=== PATIENT | female | born 1960 | race Caucasian/White ===

== ENCOUNTER → 2017-04-29 | Outpatient (CLI) | payer OTHER ==
--- NOTE | 2017-04-29 11:45 | MR ---
EXAMINATION TYPE: MR knee LT wo con DATE OF EXAM: 04/29/2017 COMPARISON: Plain film 04/16/2017 HISTORY: lt knee pain TECHNIQUE: Multiplanar, multisequence imaging of the left knee is performed without IV contrast. FINDINGS: MEDIAL MENISCUS: Abnormal increased signal present within the posterior horn extends the articular faria rface, meniscal fragment is suspected medially posterior horn. LATERAL MENISCUS: There is abnormal increased signal along the lateral meniscus which is somewhat di ffuse is felt likely to represent myxoid degeneration however some linear increased signal may extend to the articular surface within the posterior horn seen better on the sagittal image #10. The menisc us is thickened compatible with discoid meniscus. CRUCIATE LIGAMENTS: The anterior and posterior cruciate ligaments are intact and unremarkable. COLLATERAL LIGAMENTS: The medial collateral ligament and lateral collateral ligament complex are inta ct and unremarkable. EXTENSOR MECHANISM: Visualized quadriceps and patellar tendons are intact. EFFUSION: Large suprapatellar joint effusion is present. POPLITEAL CYST: Minute semimembranosus gastrocnemius cyst. TRICOMPARTMENT SPACES: Pseudoextrusion of the medial meniscus is noted. CARTILAGE: Grade 3 to grade IV chondromalacia in the medial compartment. Suspect grade 2 to grade III chondromalacia at the posterior patella BONE MARROW SIGNAL: Subchondral marrow edema or reactive signal change present especially in the medi al meniscus. Probable geode is present in the posterior tibia proximally. OTHER: Marginal spurring is present in the medial compartment. IMPRESSION: Tear of the posterior horn medial meniscus. Osteoarthritis. 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 Large joint effusion. Additional findings above.
== END | disposition home or self-care (01) ==
LOC: RADMRIMAIN 08:41
PROVIDERS: ATTEND Orthopaedic Surgery
DX: S83.242A Other tear of medial meniscus, current injury, left knee, initial encounter (principal); M17.12 Unilateral primary osteoarthritis, left knee

== ENCOUNTER → 2017-09-11 | Outpatient (CLI) | payer OTHER ==
--- NOTE | 2017-09-11 11:54 | MM ---
Reason for exam: clinical finding. Last mammogram was performed 1 year ago. History: Patient is postmenopausal and had first child at age 29. Family history of breast cancer in mother at age 70. U/S LT Cancelled Core of both breasts, September 21, 2013. Reductions of both breasts, 1999. 2 excisional biopsies of the left breast. Took hormonal contraceptives for 5 years beginning at age 18. Took estrogen for 10 years beginning at age 36. Physical Findings: Nurse Summary: 1.5cm nodule in the left breast at 7 o'clock (nurse dw). MG Diagnostic Mammo w CAD TOMMY Bilateral CC and MLO view(s) were taken. Prior study comparison: September 11, 2016, bilateral MG 3d screening mammo w/cad. September 05, 2015, bilateral MG 3d diag mammo w/cad TOMMY. There are scattered fibroglandular densities. Finding: There is a 7 mm circumscribed oval mass in the inner quadrant, middle position of the right breast. There is a chronic nodularity in the right breast. Increase in size since September 11, 2016 and September 05, 2015. ASSESSMENT: Incomplete: need additional imaging evaluation, BI-RAD 0 RECOMMENDATION: Ultrasound of both breasts. (left palpable, right increase in size lesion)
--- NOTE | 2017-09-11 11:56 | USB ---
Reason for exam: additional evaluation requested from abnormal screening. History: Patient is postmenopausal and had first child at age 29. Family history of breast cancer in mother at age 70. U/S LT Cancelled Core of both breasts, September 21, 2013. Reductions of both breasts, 1999. 2 excisional biopsies of the left breast. Took hormonal contraceptives for 5 years beginning at age 18. Took estrogen for 10 years beginning at age 36. US Breast Limited BILAT Right breast ultrasound demonstrates no cystic or solid lesion seen. Left breast ultrasound demonstrates no cystic or solid lesion seen. These results were verbally communicated with the patient and result sheet given to the patient on 09/11/17. ASSESSMENT: Negative, BI-RAD 1 RECOMMENDATION: Return to routine screening mammogram schedule for both breasts.
== END | disposition home or self-care (01) ==
LOC: RADMAMWWP 09:00
PROVIDERS: ATTEND Obstetrics & Gynecology
DX: N63.20 Unspecified lump in the left breast, unspecified quadrant (principal); R92.8 Other abnormal and inconclusive findings on diagnostic imaging of breast; Z80.3 Family history of malignant neoplasm of breast
CPT/HCPCS: 76642; G0204

== ENCOUNTER → 2017-12-16 | Outpatient (CLI) | payer BC ==
--- NOTE | 2017-12-16 15:57 | US ---
EXAMINATION TYPE: US venous doppler duplex LE RT DATE OF EXAM: 12/16/2017 3:46 PM COMPARISON: NONE CLINICAL HISTORY: RT R60.0 Edema of lower Ext. SIDE PERFORMED: Right TECHNIQUE: The lower extremity deep venous system is examined utilizing real time linear array sonog kurt with graded compression, doppler sonography and color-flow sonography. VESSELS IMAGED: External Iliac Vein (EIV) Common Femoral Vein Deep Femoral Vein Greater Saphenous Vein * Femoral Vein Popliteal Vein Small Saphenous Vein * Proximal Calf Veins (* superficial vessels) Right Leg: Negative for DVT Grayscale, color doppler, spectral doppler imaging performed of the deep veins of the lower extremiti es. IMPRESSION: There is normal flow, compressibility, vascular waveforms. No evident deep venous thro mbosis at or above the right knee.
== END | disposition home or self-care (01) ==
LOC: RADUSWWP 14:55
PROVIDERS: ATTEND Family Medicine
DX: R60.0 Localized edema (principal)

== ENCOUNTER 2018-09-03 07:33 | Day surgery (SDC) | payer BC ==
[2018-08-29 14:29] VITALS: BMI 30.1
[~2018-09-03 07:33] MED LIST: ALPRAZolam 0.25 MG TAB PO PRN; ALPRAZolam 0.5 MG TAB PO PRN; ASPIRIN 325 MG TAB PO STA; ATORVASTATIN 80 MG TAB PO STA; NITROGLYCERIN SL TABS 0.4 MG TAB SUBLINGUAL PRN; SODIUM CHLORIDE 0.9% 1,000 ML in EMPTY BAG 1 BAG IV ONE
[2018-09-03] MEDS ORDERED: LIDOCAINE 1% INJ 10MG/ML (20 ML MDV) ONE (08:02)
[2018-09-03] MEDS ORDERED: VERAPAMIL 2.5 MG/ML 2 ML AMP ONE (08:02)
[2018-09-03] MEDS ORDERED: fentaNYL (PF) 50 MCG/ML 2 ML AMP ONE (08:02)
[2018-09-03] MEDS ORDERED: HEPARIN SODIUM 1,000 UN/ML (10ML VL) ONE (08:03)
[2018-09-03] MEDS ORDERED: SODIUM CHLORIDE 0.9% 1,000 ML IV ONE (08:06)
[2018-09-03 08:07] VITALS: RESP 16; TEMP 97.7
[2018-09-03] MEDS ORDERED: fentaNYL (PF) 50 MCG/ML 2 ML AMP IV ONE (08:47)
[2018-09-03] MEDS ORDERED: LIDOCAINE 1% (PF) 10MG/ML VIAL SQ ONE (08:50)
[2018-09-03] MEDS: MIDAZOLAM 2 MG/2 ML VIAL IVP ONE ×2 (08:50→08:53)
[2018-09-03] MEDS ORDERED: VERAPAMIL SYRINGE (5 MG/10 ML) INTRAARTER ONE (08:51)
[2018-09-03] MEDS ORDERED: HEPARIN SODIUM 1,000 UN/ML (10ML VL) IV ONE (08:58)
[2018-09-03] MEDS ORDERED: IOPAMIDOL-370 125ML BTL INJ ONE (09:01)
[2018-09-03] MEDS ORDERED: SODIUM CHLORIDE 0.9% 1,000 ML IV SCH (09:15)
[2018-09-03] MEDS ORDERED: RX INFO: IV CONTRAST WAS GIVEN 1 EACH MISC MISCELLANE PRN (09:15)
[2018-09-03] MEDS ORDERED: ALPRAZolam 0.25 MG TAB PO PRN (09:16)
--- NOTE | 2018-09-03 10:17 | CC ---
CARDIAC CATHETERIZATION REPORT Ms. Stephens is a 58-year-old female with no prior documented coronary artery disease with a history of hypertension, hyperlipidemia, who has been complaining of chest discomfort. She underwent myocardial perfusion imaging that revealed a partial reversible anterior wall defect. In view of her persistent symptoms and the results of her testing, recommendation made regarding cardiac catheterization. The procedures, risks and complication were discussed with the patient who is in full understanding and agreement. PROCEDURE: Patient was brought to the laboratory inspector in a fasting semi-sedated state after receiving fentanyl and Benadryl and achieving moderate conscious sedated state. Using Xylocaine anesthesia and Seldinger technique, a 6-Kazakh sheath was introduced in the right radial artery. Selective right and left angiography performed using 5-Kazakh 3.5 bend right and left Amelia catheter, multiple views of the coronary artery including hemiaxial views were obtained. Following that, a 5-Kazakh tight pigtail catheters was introduced in the left ventricle and a 30 degree MUNIZ view of the left ventricle was obtained. Following that, the catheter and sheaths were removed, hemostasis was obtained with deployment of a TR band. There was no immediate complication. Patient was returned to her room in stable condition. Of note, the patient received 4500 units of intravenous heparin as well as intra-arterial verapamil. FINDINGS: LEFT MAIN: This is a short size vessel, bifurcating onto left circumflex, left anterior descending artery. Left main coronary artery has no evidence of high-grade stenosis LEFT ANTERIOR DESCENDING ARTERY: This is a large-sized vessel, reaching toward the apex, tapers down distally, giving rise to a large diagonal branch in the mid segment. The left anterior descending artery as well as branches have no evidence of obstructive coronary artery disease. LEFT CIRCUMFLEX: This is a large, nondominant vessel giving rise to two obtuse marginal branch. The left circumflex as well as branches have no evidence of obstructive coronary artery disease. RIGHT CORONARY ARTERY: This is a large dominant vessel, bifurcating into PDA and posterolateral segment branches. The right coronary artery and its branches have no evidence of obstructive coronary artery disease. LEFT VENTRICULOGRAM: Left ventriculogram is performed in 30 degree MUNIZ view and revealed normal left ventricular size and systolic function. There was arrhythmia induced mitral regurgitation. HEMODYNAMICS: There was no gradient across the aortic valve, the left ventricular end- diastolic pressure was 12 mmHg. CONCLUSION: 1. Normal coronary arteries. 2. Normal left ventricular size systolic function. RECOMMENDATION: In view of finding anatomy, I recommend continue medical therapy with aggressive risk modifications being initiated. Those findings and recommendations were discussed with the patient and her family and they are in full understanding and agreement. Duration of procedure is 17 minutes. MMPHI / FEDERICON: [id number] /
[2018-09-03 11:04] VITALS: PULSE 56
[2018-09-03 13:55] VITALS: BP 113/69
[2018-09-03] MEDS ORDERED: NON-FORMULARY DRUG (Rosuvastatin 10 MG) PO SCH (21:00)
[2018-09-04] MEDS ORDERED: NON-FORMULARY DRUG (Omeprazole 20 MG) PO SCH (07:30)
[2018-09-04] MEDS ORDERED: TRIAMTERENE-HCTZ 37.5-25MG 1 EACH CAP PO SCH (09:00)
[2018-09-04] MEDS ORDERED: ASPIRIN 81 MG PO SCH (09:00)
[2018-09-04] MEDS ORDERED: MULTIVIT WITH CALCIUM IRON MIN PO SCH (09:00)
[2018-09-04] MEDS ORDERED: CO Q10 PO SCH (09:00)
== END 2018-09-03 14:09 | disposition home or self-care (01) ==
LOC: CATHCVL 07:33
PROVIDERS: ATTEND Internal Medicine Interventional Cardiology
DX: R94.39 Abnormal result of other cardiovascular function study (principal); R07.89 Other chest pain; E78.2 Mixed hyperlipidemia; I10 Essential (primary) hypertension; F17.210 Nicotine dependence, cigarettes, uncomplicated; Z79.82 Long term (current) use of aspirin; Z79.899 Other long term (current) drug therapy; Z88.6 Allergy status to analgesic agent; Z88.1 Allergy status to other antibiotic agents; Z88.5 Allergy status to narcotic agent; Z88.2 Allergy status to sulfonamides; Z86.73 Personal history of transient ischemic attack (TIA), and cerebral infarction without residual deficits
CPT/HCPCS: 93458; C1894; C1769; J2250; J3010; J1644; J2001; Q9967

== ENCOUNTER → 2018-10-13 | Outpatient (CLI) | payer BC ==
--- NOTE | 2018-10-16 16:57 | MM ---
Reason for exam: screening (asymptomatic). Last mammogram was performed 1 year and 1 month ago. History: Patient is postmenopausal and had first child at age 29. Family history of breast cancer in mother at age 70. U/S LT Cancelled Core of both breasts, September 21, 2013. Reductions of both breasts, 1999. 2 excisional biopsies of the left breast. Took hormonal contraceptives for 5 years beginning at age 18. Took estrogen for 10 years beginning at age 36. MG Screening Mammo w CAD Bilateral CC and MLO view(s) were taken. Prior study comparison: September 11, 2017, bilateral MG diagnostic mammo w CAD TOMMY. September 11, 2016, bilateral MG 3d screening mammo w/cad. The breast tissue is heterogeneously dense. This may lower the sensitivity of mammography. There is benign-appearing left breast calcifications. Chronic nodularity in the right breast. No significant changes when compared with prior studies. ASSESSMENT: Benign, BI-RAD 2 RECOMMENDATION: Routine screening mammogram of both breasts in 1 year.
== END ==
LOC: RADMAMWWP 10:39
PROVIDERS: ATTEND Obstetrics & Gynecology
DX: Z12.31 Encounter for screening mammogram for malignant neoplasm of breast (principal)
CPT/HCPCS: 77067

== ENCOUNTER 2019-02-11 07:16 | Day surgery (SDC) | payer BC ==
[2019-02-09 13:02] VITALS: BMI 29.6
[~2019-02-11 07:16] MED LIST changes: -ALPRAZolam 0.25 MG TAB PO PRN; -ALPRAZolam 0.5 MG TAB PO PRN; -ASPIRIN 325 MG TAB PO STA; -ATORVASTATIN 80 MG TAB PO STA; +LACTATED RINGERS 1,000 ML IV SCH; -NITROGLYCERIN SL TABS 0.4 MG TAB SUBLINGUAL PRN; -SODIUM CHLORIDE 0.9% 1,000 ML in EMPTY BAG 1 BAG IV ONE
[2019-02-11 07:46] VITALS: TEMP 97.9
--- NOTE | 2019-02-11 07:53 | P.GSHP ---
History of Present Illness H&P Date: 02/11/19 CHIEF COMPLAINT: Colon screen HISTORY OF PRESENT ILLNESS: The patient is a 58-year-old female who presents for colon screen. Lower endoscopy was offered for further evaluation and management. PAST MEDICAL HISTORY: Please see list. PAST SURGICAL HISTORY: Please see list. MEDICATIONS: Please see list. ALLERGIES: Please see list. SOCIAL HISTORY: No illicit drug use FAMILY HISTORY: No reports of Crohn disease or ulcerative colitis. REVIEW OF ORGAN SYSTEMS: CONSTITUTIONAL: No reports of fevers or chills. PHYSICAL EXAM: VITAL SIGNS: Stable GENERAL: Well-developed pleasant in no acute distress. HEENT: No scleral icterus. Extraocular movements grossly intact. Moist buccal mucosa. NECK: Supple without lymphadenopathy. CHEST: Unlabored respirations. Equal bilateral excursions. CARDIOVASCULAR: Regular rate and rhythm. Distal 2+ pulses. ABDOMEN: Soft, nontender, nondistended. MUSCULOSKELETAL: No clubbing, cyanosis, or edema. ASSESSMENT: 1. Colon screen. PLAN: 1. Recommend proceeding with a lower endoscopy Past Medical History Past Medical History: Chest Pain / Angina, CVA/TIA, GERD/Reflux, Hyperlipidemia, Hypertension Additional Past Medical History / Comment(s): Hx. of TIA,varicose Veins. States 14 TIA's' shown on MRI discovered in 2001. Hx of arthritis, pain in ball's of feet, Diverticulositis w/ rupture and abscess-tx medically with drainge tube 2013 History of Any Multi-Drug Resistant Organisms: None Reported Past Surgical History: Cholecystectomy, Heart Catheterization, Hysterectomy, Orthopedic Surgery, Tonsillectomy Additional Past Surgical History / Comment(s): Hx. of nodules on vocal cords removed x2, colonoscopy, R breast Bx., D&C, ifeoma breast reduction, laser tubal repair, ifeoma knee arthroscopy. Past Anesthesia/Blood Transfusion Reactions: Postoperative Nausea & Vomiting (PONV) Smoking Status: Former smoker - Past Family History Mother Family Medical History: Cancer, Coronary Artery Disease (CAD), Myocardial Infarction ([place]) Additional Family Medical History / Comment(s): Breast cancer w/ brain mets, CABG x 4 Father Family Medical History: Cancer Additional Family Medical History / Comment(s): 2013 from prostate ca Medications and Allergies Home Medications Medication Instructions Recorded Confirmed Type Aspirin 81 mg PO QAM 01/19/14 02/09/19 History Triamterene/Hydrochlorothiazid 1 tab PO QAM 03/22/14 02/09/19 History [Triamterene-Hctz 37.5-25 mg Cp] ALPRAZolam [Xanax] 0.25 mg PO DAILY PRN 02/03/16 02/09/19 History Naproxen [Naprosyn] 500 mg PO DAILY 07/09/17 02/09/19 History Ubidecarenone [Co Q-10] 200 mg PO DAILY 07/09/17 02/09/19 History Omeprazole [PriLOSEC] 20 mg PO AC-BRKFST 08/29/18 02/09/19 History Rosuvastatin [Crestor] 10 mg PO HS 08/29/18 02/09/19 History Cholecalciferol (Vitamin D3) 1,000 unit PO DAILY 02/09/19 02/09/19 History [Vitamin D3] Glucosamine/MSM/Chrond/D3/Bosw 1 each PO DAILY 02/09/19 02/09/19 History [Vdcfavlqjcv-Fbutnn-KTR-D3 Cplt] Inulin/Chromium Picolinate [Fiber 2 each PO DAILY 02/09/19 02/09/19 History Gummies Chew] Metoprolol (Unknown) 25 mg PO BID 02/09/19 02/09/19 History Multivit-Min/Iron/Folic/Lutein 1 each PO DAILY 02/09/19 02/09/19 History [Centrum Silver Women Tablet] Polyethylene Glycol 3350 [Miralax] 17 gm PO DAILY 02/09/19 02/09/19 History Allergies Allergy/AdvReac Type Severity Reaction Status Date / Time hydrocodone bitartrate Allergy Rash/Hives Verified 02/11/19 07:39 [From Vicodin] sulfamethoxazole Allergy Rash/Hives Verified 02/11/19 07:39 [From Bactrim] trimethoprim [From Bactrim] Allergy Rash/Hives Verified 02/11/19 07:39 Sulfa (Sulfonamide AdvReac Rash/Hives Verified 02/11/19 07:39 Antibiotics) Surgical - Exam Vital Signs Temp Pulse Resp BP Pulse Ox 97.9 F 80 15 137/84 98 02/11/19 07:45 02/11/19 07:45 02/11/19 07:45 02/11/19 07:45 02/11/19 07:45
[2019-02-11] MEDS ORDERED: LIDOCAINE 1% INJ 10MG/ML (20 ML MDV) ONE (07:57)
[2019-02-11] MEDS ORDERED: PROPOFOL 10 MG/ML 20 ML VIAL IV ONE (07:57)
--- NOTE | 2019-02-11 08:25 | P.PCN ---
Date of Procedure: 02/11/19 Description of Procedure: PREOPERATIVE DIAGNOSIS: History of recent diverticulitis Colonoscopy screening. POSTOPERATIVE DIAGNOSIS: History of recent diverticulitis, sigmoid colon Colonoscopy screening. OPERATION: Colonoscopy to the ileocecal valve and appendiceal orifice. SURGEON: Holly Tavarez MD. ANESTHESIA: MAC. INDICATIONS: The patient is a 58-year-old female who presents for colonoscopy screening. Last colonoscopy was 5 years. Benefits and risks were described and informed consent was obtained. DESCRIPTION OF PROCEDURE: The patient had undergone Gatorade, MiraLAX and Dulcolax prep. She had been brought into the operating room and laid in the left lateral decubitus position. After adequate intravenous sedation, the rectum was examined with 2% lidocaine jelly. No external hemorrhoids were encountered. The rectal tone was within normal limits. No lesions were palpated in the rectal vault. An Olympus colonoscope was advanced until the ileocecal valve and appendiceal orifice were clearly viewed. The prep was excellent with clear visualization of the mucosal folds. The scope was removed with visualization of each mucosal fold. Scattered diverticulosis was encountered with [place] orifice between 20-30 cm was identified. The colon was highly redundant requiring abdominal wall pressure. No colonic polyps were found. No evidence of focal colitis was found. Retroflexion of the scope demonstrated no internal hemorrhoids. The colon was desufflated. The patient had tolerated the procedure well. Withdrawal time was over 6 minutes. FINDINGS: Aronchick preparation quality scale 1 (1-5) No internal hemorrhoids No external prolapsed hemorrhoids. No arteriovenous malformations. No adenomatous polyps. No focal colitis. RECOMMENDATIONS: Lower endoscopy in 10 years, 2028 Plan - Discharge Summary Discharge Rx Participant: No New Discharge Prescriptions: No Action Aspirin 81 mg PO QAM Triamterene/Hydrochlorothiazid [Triamterene-Hctz 37.5-25 mg Cp] 1 tab PO QAM ALPRAZolam [Xanax] 0.25 mg PO DAILY PRN PRN Reason: Anxiety Naproxen [Naprosyn] 500 mg PO DAILY Ubidecarenone [Co Q-10] 200 mg PO DAILY Omeprazole [PriLOSEC] 20 mg PO AC-BRKFST Rosuvastatin [Crestor] 10 mg PO HS Metoprolol Tartrate 25 mg PO BID Glucosamine/MSM/Chrond/D3/Bosw [Gmeuvbetrda-Mllahu-GIL-D3 Cplt] 1 each PO DAILY Multivit-Min/Iron/Folic/Lutein [Centrum Silver Women Tablet] 1 each PO DAILY Inulin/Chromium Picolinate [Fiber Gummies Chew] 2 each PO DAILY Polyethylene Glycol 3350 [Miralax] 17 gm PO DAILY Cholecalciferol (Vitamin D3) [Vitamin D3] 1,000 unit PO DAILY Discharge Medication List Aspirin 81 mg PO QAM 01/19/14 [History] Triamterene/Hydrochlorothiazid [Triamterene-Hctz 37.5-25 mg Cp] 1 tab PO QAM 03/22/14 [History] ALPRAZolam [Xanax] 0.25 mg PO DAILY PRN 02/03/16 [History] Naproxen [Naprosyn] 500 mg PO DAILY 07/09/17 [History] Ubidecarenone [Co Q-10] 200 mg PO DAILY 07/09/17 [History] Omeprazole [PriLOSEC] 20 mg PO AC-BRKFST 08/29/18 [History] Rosuvastatin [Crestor] 10 mg PO HS 08/29/18 [History] Cholecalciferol (Vitamin D3) [Vitamin D3] 1,000 unit PO DAILY 02/09/19 [History] Glucosamine/MSM/Chrond/D3/Bosw [Gsttvryinvm-Xxjfki-EKS-D3 Cplt] 1 each PO DAILY 02/09/19 [History] Inulin/Chromium Picolinate [Fiber Gummies Chew] 2 each PO DAILY 02/09/19 [History] Metoprolol Tartrate 25 mg PO BID 02/09/19 [History] Multivit-Min/Iron/Folic/Lutein [Centrum Silver Women Tablet] 1 each PO DAILY 02/09/19 [History] Polyethylene Glycol 3350 [Miralax] 17 gm PO DAILY 02/09/19 [History] Follow up Appointment(s)/Referral(s): Holly Tavarez MD [STAFF PHYSICIAN] - 02/24/19 Patient Instructions/Handouts: Diverticulosis Diet (GEN), Diverticulosis (DC) Activity/Diet/Wound Care/Special Instructions: Repeat colonoscopy in 10 years, 2028 Discharge Disposition: HOME SELF-CARE
[2019-02-11 08:57] VITALS: BP 133/80; PULSE 52; RESP 16
== END 2019-02-11 09:11 | disposition home or self-care (01) ==
LOC: ORWHC2ENDO 07:16
PROVIDERS: ATTEND Surgery Plastic and Reconstructive Surgery
DX: K57.30 Diverticulosis of large intestine without perforation or abscess without bleeding (principal); Q43.9 Congenital malformation of intestine, unspecified; I10 Essential (primary) hypertension; K44.9 Diaphragmatic hernia without obstruction or gangrene; E78.5 Hyperlipidemia, unspecified; F41.9 Anxiety disorder, unspecified; K21.9 Gastro-esophageal reflux disease without esophagitis; Z88.5 Allergy status to narcotic agent; Z88.2 Allergy status to sulfonamides; Z79.1 Long term (current) use of non-steroidal anti-inflammatories (NSAID); Z79.82 Long term (current) use of aspirin; Z79.899 Other long term (current) drug therapy; Z90.49 Acquired absence of other specified parts of digestive tract; Z90.710 Acquired absence of both cervix and uterus; Z87.891 Personal history of nicotine dependence; Z86.73 Personal history of transient ischemic attack (TIA), and cerebral infarction without residual deficits; Z82.49 Family history of ischemic heart disease and other diseases of the circulatory system; Z80.3 Family history of malignant neoplasm of breast; Z80.42 Family history of malignant neoplasm of prostate; Z80.8 Family history of malignant neoplasm of other organs or systems
CPT/HCPCS: 45378; J2001; J2704

== ENCOUNTER 2019-04-22 09:41 | Day surgery (SDC) | payer BC ==
[2019-04-17 10:25] VITALS: BMI 28.3
--- NOTE | 2019-04-22 07:33 | P.GSHP ---
History of Present Illness H&P Date: 04/22/19 CHIEF COMPLAINT: GERD HISTORY OF PRESENT ILLNESS: The patient is a 58-year-old male who presents reports gastroesophageal reflux disease. Upper endoscopy was offered for further evaluation and management. PAST MEDICAL HISTORY: Please see list. PAST SURGICAL HISTORY: Please see list. MEDICATIONS: Please see list. ALLERGIES: Please see list. SOCIAL HISTORY: No illicit drug use FAMILY HISTORY: No reports of Crohn disease or ulcerative colitis. REVIEW OF ORGAN SYSTEMS: CONSTITUTIONAL: No reports of fevers or chills. GI: Denies any blood in stools or constipation. PHYSICAL EXAM: VITAL SIGNS: Stable GENERAL: Well-developed and pleasant in no acute distress. HEENT: No scleral icterus. Extraocular movements grossly intact. Moist buccal mucosa. NECK: Supple without lymphadenopathy. CHEST: Unlabored respirations. Equal bilateral excursions. CARDIOVASCULAR: Regular rate and rhythm. Distal 2+ pulses. ABDOMEN: Soft, nondistended. MUSCULOSKELETAL: No clubbing, cyanosis, or edema. ASSESSMENT: 1. Gastroesophageal reflux disease PLAN: 1. Recommend proceeding with an upper endoscopy Past Medical History Past Medical History: CVA/TIA, GERD/Reflux, Hyperlipidemia, Hypertension Additional Past Medical History / Comment(s): varicose Veins,14 TIA's' shown on MRI discovered in 2001. diverticulosiis w/ rupture and abscess-tx medically with drainge tube 2013, hiatal hernia, arthritis History of Any Multi-Drug Resistant Organisms: None Reported Past Surgical History: Breast Surgery, Cholecystectomy, Heart Catheterization, Hysterectomy, Orthopedic Surgery, Tonsillectomy Additional Past Surgical History / Comment(s): Hx. of nodules on vocal cords removed x2, colonoscopy, R breast Bx., D&C, ifeoma breast reduction, laser tubal repair, ifeoma knee arthroscopy. Past Anesthesia/Blood Transfusion Reactions: Postoperative Nausea & Vomiting (PONV) Additional Past Anesthesia/Blood Transfusion Reaction / Comment(s): diff waking up a long time ago Smoking Status: Former smoker - Past Family History Mother Family Medical History: Cancer Additional Family Medical History / Comment(s): Breast cancer Father Family Medical History: Cancer Additional Family Medical History / Comment(s): prostate ca Medications and Allergies Home Medications Medication Instructions Recorded Confirmed Type Aspirin 81 mg PO QAM 01/19/14 04/17/19 History Triamterene/Hydrochlorothiazid 1 tab PO QAM 03/22/14 04/17/19 History [Triamterene-Hctz 37.5-25 mg Cp] ALPRAZolam [Xanax] 0.25 mg PO DAILY PRN 02/03/16 04/17/19 History Naproxen [Naprosyn] 500 mg PO DAILY 07/09/17 04/17/19 History Ubidecarenone [Co Q-10] 200 mg PO DAILY 07/09/17 04/17/19 History Omeprazole [PriLOSEC] 20 mg PO AC-BRKFST 08/29/18 04/17/19 History Rosuvastatin [Crestor] 10 mg PO HS 08/29/18 04/17/19 History Cholecalciferol (Vitamin D3) 1,000 unit PO DAILY 02/09/19 04/17/19 History [Vitamin D3] Glucosamine/MSM/Chrond/D3/Bosw 1 each PO DAILY 02/09/19 04/17/19 History [Fujswirnsqr-Egeruf-JEQ-D3 Cplt] Inulin/Chromium Picolinate [Fiber 3 each PO DAILY 02/09/19 04/17/19 History Gummies Chew] Metoprolol Tartrate 25 mg PO BID 02/09/19 04/17/19 History Multivit-Min/Iron/Folic/Lutein 1 each PO DAILY 02/09/19 04/17/19 History [Centrum Silver Women Tablet] Magnesium(Dose Unknown) 1 cap PO DAILY 04/17/19 04/17/19 History Allergies Allergy/AdvReac Type Severity Reaction Status Date / Time hydrocodone bitartrate Allergy Rash/Hives Verified 04/17/19 10:13 [From Vicodin] sulfamethoxazole Allergy Rash/Hives Verified 04/17/19 10:13 [From Bactrim] trimethoprim [From Bactrim] Allergy Rash/Hives Verified 04/17/19 10:13 Sulfa (Sulfonamide AdvReac Rash/Hives Verified 04/17/19 10:13 Antibiotics)
[~2019-04-22 09:41] MED LIST changes: +LIDOCAINE 1% 20 ML VIAL (10MG/ML) FOR IV START INTRADERMA PRN
[2019-04-22 10:13] VITALS: TEMP 98.1
[2019-04-22] MEDS ORDERED: PROPOFOL 10 MG/ML 20 ML VIAL IV ONE (10:48)
[2019-04-22] MEDS ORDERED: LIDOCAINE 1% INJ 10MG/ML (20 ML MDV) ONE (10:48)
--- NOTE | 2019-04-22 11:05 | P.PCN ---
Date of Procedure: 04/22/19 Description of Procedure: PREOPERATIVE DIAGNOSIS: Gastroesophageal reflux disease. POSTOPERATIVE DIAGNOSIS: Gastritis. Gastroesophageal reflux disease. Diaphragmatic hiatal hernia with severe erosive esophagitis OPERATION: Esophagogastroduodenoscopy with biopsies along antrum and distal esophagus SURGEON: Holly Tavarez MD ANESTHESIA: MAC. INDICATIONS: The patient is a 58-year-old female who presents with a history of reflux disease. Benefits and risks of the procedure were described. Informed consent was obtained. DESCRIPTION: The patient was brought into the endoscopy suite and laid in the left lateral decubitus position. An Olympus gastroscope was passed along the posterior oropharynx down to the distal esophagus where the squamocolumnar junction was encountered at 38 cm from the incisors. The stomach was entered and no bile reflux was found. Additional findings are listed below. Biopsies with cold forceps were obtained of the antrum. The first through third portion of the duodenum was examined and unremarkable. Retroflexion of the scope confirmed Hill grade 4 lower esophageal valve. The squamocolumnar junction demonstrated LA grade C erosive esophagitis. The stomach was desufflated. The patient tolerated the procedure well. FINDINGS: Squamocolumnar junction 38 cm from the incisors. Diaphragmatic hiatus at 40 cm. Hiatal hernia, 2 cm Hill grade 4 lower esophageal valve. LA grade C erosive esophagitis with biopsies obtained along distal esophagus No active duodenitis. Chronic gastritis RECOMMENDATIONS: Upper endoscopy as needed. Increase omeprazole from 20 mg to 40 mg daily for inadequate therapy Plan - Discharge Summary Discharge Rx Participant: No New Discharge Prescriptions: New Omeprazole 40 mg PO DAILY #90 capsule.dr Discontinued Omeprazole [PriLOSEC] 20 mg PO AC-BRKFST No Action Aspirin 81 mg PO QAM Triamterene/Hydrochlorothiazid [Triamterene-Hctz 37.5-25 mg Cp] 1 tab PO QAM ALPRAZolam [Xanax] 0.25 mg PO DAILY PRN PRN Reason: Anxiety Naproxen [Naprosyn] 500 mg PO DAILY Ubidecarenone [Co Q-10] 200 mg PO DAILY Rosuvastatin [Crestor] 10 mg PO HS Metoprolol Tartrate 25 mg PO BID Glucosamine/MSM/Chrond/D3/Bosw [Jayccztpkwe-Kogfza-AZY-D3 Cplt] 1 each PO DAILY Multivit-Min/Iron/Folic/Lutein [Centrum Silver Women Tablet] 1 each PO DAILY Inulin/Chromium Picolinate [Fiber Gummies Chew] 3 each PO DAILY Cholecalciferol (Vitamin D3) [Vitamin D3] 1,000 unit PO DAILY Magnesium(Dose Unknown) 1 cap PO DAILY Discharge Medication List Aspirin 81 mg PO QAM 01/19/14 [History] Triamterene/Hydrochlorothiazid [Triamterene-Hctz 37.5-25 mg Cp] 1 tab PO QAM 03/22/14 [History] ALPRAZolam [Xanax] 0.25 mg PO DAILY PRN 02/03/16 [History] Naproxen [Naprosyn] 500 mg PO DAILY 07/09/17 [History] Ubidecarenone [Co Q-10] 200 mg PO DAILY 07/09/17 [History] Rosuvastatin [Crestor] 10 mg PO HS 08/29/18 [History] Cholecalciferol (Vitamin D3) [Vitamin D3] 1,000 unit PO DAILY 02/09/19 [History] Glucosamine/MSM/Chrond/D3/Bosw [Kdzldlfbrdk-Itivik-RZK-D3 Cplt] 1 each PO DAILY 02/09/19 [History] Inulin/Chromium Picolinate [Fiber Gummies Chew] 3 each PO DAILY 02/09/19 [History] Metoprolol Tartrate 25 mg PO BID 02/09/19 [History] Multivit-Min/Iron/Folic/Lutein [Centrum Silver Women Tablet] 1 each PO DAILY 02/09/19 [History] Magnesium(Dose Unknown) 1 cap PO DAILY 04/17/19 [History] Omeprazole 40 mg PO DAILY #90 capsule. 04/22/19 [Rx] Follow up Appointment(s)/Referral(s): Holly Tavarez MD [STAFF PHYSICIAN] - 05/05/19 Patient Instructions/Handouts: Hiatal Hernia (DC), Gastroesophageal Reflux Disease (DC) Discharge Disposition: HOME SELF-CARE
[2019-04-22 11:23] VITALS: BP 139/82; PULSE 53; RESP 16
== END 2019-04-22 11:54 | disposition home or self-care (01) ==
LOC: ORWHC2ENDO 09:41
PROVIDERS: ATTEND Surgery Plastic and Reconstructive Surgery
DX: K21.0 Gastro-esophageal reflux disease with esophagitis (principal); K29.50 Unspecified chronic gastritis without bleeding; K44.9 Diaphragmatic hernia without obstruction or gangrene; I10 Essential (primary) hypertension; E78.5 Hyperlipidemia, unspecified; F41.9 Anxiety disorder, unspecified; M19.90 Unspecified osteoarthritis, unspecified site; I83.90 Asymptomatic varicose veins of unspecified lower extremity; Z86.73 Personal history of transient ischemic attack (TIA), and cerebral infarction without residual deficits; Z87.891 Personal history of nicotine dependence; Z79.1 Long term (current) use of non-steroidal anti-inflammatories (NSAID); Z79.899 Other long term (current) drug therapy; Z88.5 Allergy status to narcotic agent; Z88.2 Allergy status to sulfonamides; Z80.3 Family history of malignant neoplasm of breast; Z80.42 Family history of malignant neoplasm of prostate; Z90.49 Acquired absence of other specified parts of digestive tract; Z90.710 Acquired absence of both cervix and uterus
CPT/HCPCS: 43239; 88305; J2001; J2704

== ENCOUNTER → 2019-11-12 | Outpatient (CLI) | payer BC ==
--- NOTE | 2019-11-12 16:20 | BD ---
EXAMINATION TYPE: Axial Bone Density DATE OF EXAM: 11/12/2019 COMPARISON: NONE CLINICAL HISTORY: 59-year-old female postmenopausal screening Height: 66.5 Weight: 200.0 FRAX RISK QUESTIONS: Alcohol (3 or more units per day): no Family History (Parent hip fracture): no Glucocorticoids (More than 3mos): no (Ex: prednisone, prednisolone, methylprednisolone, dexamethasone, and hydrocortisone). History of Fracture in Adulthood: no Secondary Osteoporosis: 1. Type 1 Diabetes: no 2. Hyperthyroidism: no 3. Menopause before 45: 4. Malnutrition: no 5. Chronic liver disease: no Rheumatoid Arthritis: no Current Tobacco Use: no RISK FACTORS HISTORY OF: Family History of Osteoporosis: no Active: yes Diet low in dairy products/other sources of calcium: yes Postmenopausal woman: hysterectomy 1998 Lost more than 2 inches in height since high school: no MEDICATIONS: naproxen, metoprolol, atorvastatin, Prilosec, low dose aspirin, probiotic, vitamins Additional History: EXAM MEASUREMENTS: Bone mineral densitometry was performed using the [employer] System. Bone mineral density as measured about the Lumbar spine is: ----- L1-L4(G/cm2): 1.158 T Score Values are as follows: ----- L2: -1.0 ----- L3: 0.2 ----- L4: 0.7 ----- L1-L4: -0.2 Bone mineral density has: increased 1.2 % since study of: 09.02.2013 Bone mineral density about the R hip (g/cm2): 0.868 Bone mineral density about the L hip (g/cm2): .0786 T Score values are as follows: -----R Neck: -1.2 -----L Neck: -1.8 -----R Total: -0.8 -----L Total: -1.2 Bone mineral density has: decreased -12.8 % since study of: 09.02.2013 IMPRESSION: Osteopenia (T Score between -2.5 and -1). There is slightly increased risk of fracture and the patient may be considered for treatment. Re-Screen 2-5 years. NOTE: T-SCORE=SD OF THE YOUNG ADULT MEAN.
== END | disposition home or self-care (01) ==
LOC: RADBDWWP 08:05
PROVIDERS: ATTEND Obstetrics & Gynecology
DX: M85.89 Other specified disorders of bone density and structure, multiple sites (principal); N95.1 Menopausal and female climacteric states
CPT/HCPCS: 77080

== ENCOUNTER → 2021-02-23 | Outpatient (CLI) | payer BC ==
--- NOTE | 2021-02-27 07:55 | MM ---
Reason for exam: screening (asymptomatic). Last mammogram was performed 1 year and 3 months ago. History: Patient is postmenopausal and had first child at age 29. Family history of breast cancer in mother at age 70. U/S LT Cancelled Core of both breasts, September 21, 2013. Reductions of both breasts, 1999. 2 excisional biopsies of the left breast. Took hormonal contraceptives for 5 years beginning at age 18. Took estrogen for 10 years beginning at age 36. Physical Findings: A clinical breast exam by your physician is recommended on an annual basis and results should be correlated with mammographic findings. MG Screening Mammo w CAD Bilateral CC and MLO view(s) were taken. Prior study comparison: November 11, 2019, bilateral MG 3d screening mammo w/cad. October 13, 2018, bilateral MG screening mammo w CAD. There are scattered fibroglandular densities. ASSESSMENT: Benign, BI-RAD 2 RECOMMENDATION: Routine screening mammogram of both breasts in 1 year.
== END | disposition home or self-care (01) ==
LOC: RADMAMWWP 13:57
PROVIDERS: ATTEND Obstetrics & Gynecology
DX: Z12.31 Encounter for screening mammogram for malignant neoplasm of breast (principal); Z78.0 Asymptomatic menopausal state; Z80.3 Family history of malignant neoplasm of breast
CPT/HCPCS: 77067

== ENCOUNTER → 2021-11-01 | Outpatient (CLI) | payer BC ==
--- NOTE | 2021-11-02 05:30 | CT ---
EXAMINATION TYPE: CT abdomen pelvis w con DATE OF EXAM: 11/01/2021 HISTORY: diverticulitis CT DLP: 709mGycm Automated Exposure Control for Dose Reduction was Utilized. CONTRAST: CT scan of the abdomen and pelvis is performed with IV Contrast, patient injected with 100 mL of Isov ue 300. COMPARISON: Prior CT January 14, 2014 FINDINGS: LUNG BASES: No significant abnormality is appreciated. LIVER/GB: Cholecystectomy clips are redemonstrated. PANCREAS: No significant abnormality is seen. SPLEEN: No significant abnormality is seen. ADRENALS: No significant abnormality is seen. KIDNEYS: Symmetric cortical medullary uptake and excretion without hydronephrosis seen bilaterally. M ildly distended bladder in the anterior pelvis. BOWEL: Oral contrast does not reach level of terminal ileum making evaluation of distal bowel subopti mal. No suspicious small or large bowel dilatation is seen. Redemonstration of sigmoid colonic divert iculosis without convincing evidence of diverticulitis. Normal-appearing appendix from cecum. UTERUS/ADNEXA: Uterus is not visualized similar to prior presumed surgically absent. Gas prominent st ructure between the rectosigmoid colon and bladder LYMPH NODES: No greater than 1cm abdominal or pelvic lymph nodes are appreciated. OSSEOUS STRUCTURES: Moderate to severe disc space narrowing with endplate sclerosis and vacuum disc p henomenon L3-L4 level along with right L4-L5 level moderate disc space narrowing with vacuum disc phe nomenon L5-S1 level. Moderate axial joint space loss in both hips. OTHER: No significant additional abnormality is seen. IMPRESSION: 1. Sigmoid colonic diverticulosis without CT evidence for acute diverticulitis. 2. Gas prominent structure in the lower pelvis has local mass effect, this could reflect redundant re ctosigmoid colon, cannot exclude origin from the remnant vaginal cuff causing mass effect on the blad roderick and distal colon. Correlate clinically. This could be better evaluated with pelvic CT with rectal contrast if necessary.
== END | disposition home or self-care (01) ==
LOC: RADCTMAIN 16:47
PROVIDERS: ATTEND Surgery Plastic and Reconstructive Surgery
DX: K57.30 Diverticulosis of large intestine without perforation or abscess without bleeding (principal)
CPT/HCPCS: 74177; Q9967

== ENCOUNTER → 2021-12-06 | Outpatient (CLI) | payer BC | END | disposition home or self-care (01) | LOC: LABWHC1 11:37 | PROVIDERS: ATTEND Surgery Plastic and Reconstructive Surgery | DX: I11.9 Hypertensive heart disease without heart failure (principal) | CPT/HCPCS: 36415; 93005 ==

== ENCOUNTER → 2022-01-18 | Outpatient (CLI) | payer BC ==
[2022-01-18 22:29] LABS: HCT 38.8 % (37.2-46.3); HGB 12.4 g/dL (12.0-15.0); MCH 29.5 pg (27.0-32.0); MCV 92.2 fL (80.0-97.0); Mean Platelet Volume 8.5 fL (9.5-12.2); NRBC Per 100 WBC 0 /100 WBCS (0.0-0.0); Platelet Count 246 X 10*3/uL (140-440); RBC 4.21 X 10*6/uL (4.10-5.20); RDW 12.2 % (11.5-14.5); WBC 6.05 X 10*3/uL (4.50-10.00)
[2022-01-18 22:47] LABS: African American GFR (CKD) 90.9 (60.0-200.0); Albumin 4.7 g/dL (3.8-4.9); Albumin/Globulin Ratio 2.24 (1.60-3.17); Anion Gap 10.5 mmol/L (10.00-18.00); BUN/Creat Ratio 16.38 Ratio (12.00-20.00); Blood Urea Nitrogen 13.1 mg/dL (9.0-27.0); Calcium 10.6 mg/dL (8.7-10.3); Carbon Dioxide 29.5 mmol/L (20.0-27.5); Globulin 2.1 g/dL (1.6-3.3); Non-African American GFR(CKD) 78.5 (60.0-200.0); Potassium 4.2 mmol/L (3.5-5.5); Total Bilirubin 0.5 mg/dL (0.30-1.20); Total Protein 6.8 g/dL (6.2-8.2)
== END | disposition home or self-care (01) ==
LOC: LABPAT 13:31
PROVIDERS: ATTEND Surgery Plastic and Reconstructive Surgery
DX: Z01.818 Encounter for other preprocedural examination (principal)
CPT/HCPCS: 36415; 80053; 85027

== ENCOUNTER → 2022-04-17 | Outpatient (CLI) | payer BC ==
--- NOTE | 2022-04-17 12:00 | BD ---
EXAMINATION TYPE: Axial Bone Density DATE OF EXAM: 04/17/2022 COMPARISON: 09/02/2013 11/12/2019 STUDY NOT AVAILABLE FOR COMPARISON CLINICAL HISTORY: 61 years year old Female. ICD-10 CODE: N95.1 POST MENOPUASAL SYMPTOMS Height: 65.5 IN Weight: 174 LBS FRAX RISK QUESTIONS: Secondary Osteoporosis: 3. Menopause before 45: TOTAL HYST AGE 34 RISK FACTORS HISTORY OF: Family History of Osteoporosis: YES AUNT Active: YES Postmenopausal woman: TOTAL HYST AGE 34 Take estrogen and/or progesterone medications: YES How long: YEARS Lost more than 2 inches in height since high school: YES 2" MEDICATIONS: Additional Medications: CALCIUM, VIT D, OMEPRAZOLE, METOPROLOL, STATIN, NAPROXEN, TRIAMERTINE, MULTI VIT, COQ10, GLUCOSAMINE, MAGNESIUM, VIT B12, POTASSIUM, BABY ASPIRIN, EXAM MEASUREMENTS: Bone mineral densitometry was performed using the [employer] System. Bone mineral density as measured about the Lumbar spine is: ----- L1-L4(G/cm2): 1.150 T Score Values are as follows: ----- L1: -1.1 ----- L2: -1.6 ----- L3: 0.4 ----- L4: 0.9 ----- L1-L4: -0.3 Bone mineral density has: Increased 0.4% since study of: 09/02/2013 Bone mineral density about the R hip (g/cm2): 0.835 Bone mineral density about the L hip (g/cm2): 0.812 T Score values are as follows: -----R Neck: -1.5 -----L Neck: -1.6 -----R Total: -1.3 -----L Total: -1.4 Bone mineral density has: Decreased -16.9% since study of: 09/02/2013 FRAX%s: The graph provided illustrates a 9.0 chance for a major osteoporotic fx and a 1.0 chance for the hips probability for fx in 10 years time. IMPRESSION: Osteopenia (T Score between -2.5 and -1). There is slightly increased risk of fracture and the patient may be considered for treatment. Re-Screen 2-5 years. NOTE: T-SCORE=SD OF THE YOUNG ADULT MEAN.
--- NOTE | 2022-04-18 19:56 | MM ---
Reason for Exam: Screening (asymptomatic). Last mammogram was performed 1 year(s) and 1 month(s) ago. Patient History: Menarche at age 11. First Full-Term at age 29. Late child-bearing (after 30). Left ovary removed at age 36. Right ovary removed at age 36. Hysterectomy at age 36. Postmenopausal. Estrogen, starting at age 36 for 10 years. Hormonal Contraceptives, starting at age 18 for 5 years. 1999, Bilateral Reduction. Excisional Biopsy on the Left side. Excisional Biopsy on the Left side. 09/21/2013, Bilateral U/S LT Cancelled Core. Mother had breast cancer, age 70. Risk Values: Kelsey 5 year model risk: 4.7%. NCI Lifetime model risk: 19.0%. Prior Study Comparison: 10/13/2018 Bilateral Screening Mammogram, [facility]. 11/11/2019 Bilateral Screening Mammogram, [facility]. 02/23/2021 Bilateral Screening Mammogram, [facility]. Tissue Density: The breast tissue is heterogeneously dense. This may lower the sensitivity of mammography. Findings: Analyzed By CAD. No suspicious groups of microcalcifications, spiculated or lobular masses, architectural distortion or other secondary signs of malignancy are mammographically apparent. Overall Assessment: Benign, BI-RAD 2 Management: Screening Mammogram of both breasts in 1 year. A negative mammogram report should not preclude additional follow up of suspicious palpable abnormalities. Patient should continue monthly self breast exam. A clinical breast exam by your physician is recommended on an annual basis and results should be correlated with mammographic findings. Electronically signed and approved by: Arsen Yanez D.O. Radiologis
== END | disposition home or self-care (01) ==
LOC: RADMAMWWP 11:07
PROVIDERS: ATTEND Obstetrics & Gynecology
DX: Z12.31 Encounter for screening mammogram for malignant neoplasm of breast (principal); M85.89 Other specified disorders of bone density and structure, multiple sites; Z78.0 Asymptomatic menopausal state; Z80.3 Family history of malignant neoplasm of breast
CPT/HCPCS: 77067; 77080

== ENCOUNTER → 2022-12-11 | Outpatient (CLI) | payer OTHER ==
[2022-12-11 10:48] LABS: HGB 13.6 g/dL (12.0-15.0); MCH 30.7 pg (27.0-32.0); MCHC 33.2 g/dL (32.0-37.0); MCV 92.6 fL (80.0-97.0); Mean Platelet Volume 8.8 fL (9.5-12.2); NRBC Per 100 WBC 0 /100 WBCS (0.0-0.0); Platelet Count 289 X 10*3/uL (140-440); RBC 4.43 X 10*6/uL (4.10-5.20); RDW 12.3 % (11.5-14.5); WBC 4.71 X 10*3/uL (4.50-10.00)
[2022-12-11 11:58] LABS: ALT 18 U/L (8-44); AST 18 U/L (13-35); African American GFR (CKD) 77.2 (60.0-200.0); BUN/Creat Ratio 17.78 Ratio (12.00-20.00); Blood Urea Nitrogen 16.2 mg/dL (9.0-27.0); Calcium 10.5 mg/dL (8.7-10.3); Carbon Dioxide 28.3 mmol/L (20.0-27.5); Chloride 101 mmol/L (96-109); Chol/HDL Ratio 2.85 Ratio; Glucose 123 mg/dL (70-110); LDL Cholesterol,Calculated 117.2 mg/dL (0.0-131.0); Non-African American GFR(CKD) 66.6 (60.0-200.0); Potassium 4.2 mmol/L (3.5-5.5); Sodium 141 mmol/L (135-145)
== END | disposition home or self-care (01) ==
LOC: LABWHC1 07:24
PROVIDERS: ATTEND Family Medicine
DX: I10 Essential (primary) hypertension (principal); E78.5 Hyperlipidemia, unspecified; R73.01 Impaired fasting glucose
CPT/HCPCS: 36415; 80048; 80061; 82306; 83036; 84450; 84460; 85027

== ENCOUNTER 2022-12-12 06:47 | Day surgery (SDC) | payer BC, OTHER ==
[2022-12-10 13:32] VITALS: BMI 29.0
[~2022-12-12 06:47] MED LIST changes: +LIDOCAINE 1% (10MG/ML) FOR IV START INTRADERMA PRN; -LIDOCAINE 1% 20 ML VIAL (10MG/ML) FOR IV START INTRADERMA PRN
[2022-12-12 07:26] VITALS: TEMP 97.7
[2022-12-12] MEDS ORDERED: PROPOFOL 10 MG/ML 20 ML VIAL IV ONE (07:39)
[2022-12-12] MEDS ORDERED: LIDOCAINE 2% INJ 20 MG/ML (2 ML VIAL) ONE (07:39)
--- NOTE | 2022-12-12 07:46 | P.GSHP ---
History of Present Illness H&P Date: 12/12/22 CHIEF COMPLAINT: GERD HISTORY OF PRESENT ILLNESS: The patient is a 62-year-old female who presents reports gastroesophageal reflux disease. Upper endoscopy was offered for further evaluation and management. PAST MEDICAL HISTORY: Please see list. PAST SURGICAL HISTORY: Please see list. MEDICATIONS: Please see list. ALLERGIES: Please see list. SOCIAL HISTORY: No illicit drug use FAMILY HISTORY: No reports of Crohn disease or ulcerative colitis. REVIEW OF ORGAN SYSTEMS: CONSTITUTIONAL: No reports of fevers or chills. GI: Denies any blood in stools or constipation. PHYSICAL EXAM: VITAL SIGNS: Stable GENERAL: Well-developed and pleasant in no acute distress. HEENT: No scleral icterus. Extraocular movements grossly intact. Moist buccal mucosa. NECK: Supple without lymphadenopathy. CHEST: Unlabored respirations. Equal bilateral excursions. CARDIOVASCULAR: Regular rate and rhythm. Distal 2+ pulses. ABDOMEN: Soft, nondistended. MUSCULOSKELETAL: No clubbing, cyanosis, or edema. ASSESSMENT: 1. Gastroesophageal reflux disease PLAN: 1. Recommend proceeding with an upper endoscopy Past Medical History Past Medical History: Chest Pain / Angina, CVA/TIA, GERD/Reflux, Hyperlipidemia, Hypertension, Osteoarthritis (OA) Additional Past Medical History / Comment(s): Diverticulosis. Varicose Veins. 11 TIA's shown on MRI discovered in 2001. Hx Diverticulitis w/ rupture, HIATAL HERNIA History of Any Multi-Drug Resistant Organisms: None Reported Past Surgical History: Bowel Resection, Breast Surgery, Cholecystectomy, Heart Catheterization, Hysterectomy, Orthopedic Surgery, Tonsillectomy Additional Past Surgical History / Comment(s): Nodules on vocal cords removed X2, colonoscopy, right breast biopsy, D&C, bilateral breast reduction, laser tubal repair, bilateral knee arthroscopy X2. Past Anesthesia/Blood Transfusion Reactions: Postoperative Nausea & Vomiting (PONV) Smoking Status: Former smoker - Past Family History Mother Family Medical History: Cancer Additional Family Medical History / Comment(s): Breast cancer. Father Family Medical History: Cancer Additional Family Medical History / Comment(s): Prostate cancer. Medications and Allergies Home Medications Medication Instructions Recorded Confirmed Type Aspirin 81 mg PO QAM 01/19/14 12/12/22 History Triamterene/Hydrochlorothiazid 1 tab PO QAM 03/22/14 12/12/22 History [Triamterene-Hctz 37.5-25 mg Cp] ALPRAZolam [Xanax] 0.25 mg PO DAILY PRN 02/03/16 12/12/22 History Naproxen [Naprosyn] 500 mg PO HS 07/09/17 12/12/22 History Ubidecarenone [Co Q-10] 100 mg PO QAM 07/09/17 12/12/22 History Rosuvastatin [Crestor] 10 mg PO HS 08/29/18 12/12/22 History Glucosamine/MSM/Chrond/D3/Bosw 2 each PO DAILY 02/09/19 12/12/22 History [Piyrdpcrjpc-Eypbhl-NQR-D3 Cplt] Metoprolol Tartrate 25 mg PO HS 02/09/19 12/12/22 History Cyanocobalamin (Vitamin B-12) 3,000 mcg PO DAILY 02/21/22 12/12/22 History [Vitamin B-12] Magnesium 500 mg PO DAILY 02/21/22 12/12/22 History Omeprazole 40 mg PO QAM 02/21/22 12/12/22 History Potassium Gluconate [Potassium 99 mg PO QAM 02/21/22 12/12/22 History Gluconate ER] Acetaminophen Tab [Tylenol Tab] 1,000 mg PO Q6HR PRN #30 tablet 02/27/22 12/12/22 Rx Allergies Allergy/AdvReac Type Severity Reaction Status Date / Time fentanyl Allergy Rash/Hives Verified 12/12/22 07:12 hydrocodone bitartrate Allergy Rash/Hives Verified 12/12/22 07:12 [From Vicodin] sulfamethoxazole Allergy Rash/Hives Verified 12/12/22 07:12 [From Bactrim] trimethoprim [From Bactrim] Allergy Rash/Hives Verified 12/12/22 07:12 Sulfa (Sulfonamide AdvReac Rash/Hives Verified 12/12/22 07:12 Antibiotics) Surgical - Exam Vital Signs Temp Pulse Resp BP Pulse Ox 97.7 F 71 14 143/87 98 12/12/22 07:07 12/12/22 07:07 12/12/22 07:07 12/12/22 07:07 12/12/22 07:07
--- NOTE | 2022-12-12 08:01 | P.PCN ---
Date of Procedure: 12/12/22 Description of Procedure: PREOPERATIVE DIAGNOSIS: Gastroesophageal reflux disease. POSTOPERATIVE DIAGNOSIS: Gastroesophageal reflux disease. Gastritis. Diaphragmatic hiatal hernia OPERATION: Esophagogastroduodenoscopy with biopsies along antrum, duodenum and esophagus SURGEON: Holly Tavarez MD ANESTHESIA: MAC. INDICATIONS: The patient is a 62-year-old female who presents with reflux disease. Benefits and risks of the procedure were described. Informed consent was obtained. DESCRIPTION: The patient was brought into the endoscopy suite and laid in the left lateral decubitus position. An Olympus gastroscope was passed along the posterior oropharynx down to the distal esophagus where the squamocolumnar junction was encountered at 40 cm from the incisors. The stomach was entered. Additional findings are listed below. Biopsies with cold forceps were obtained of the antrum. The first through third portion of the duodenum was examined. Retroflexion of the scope confirmed Hill grade 3 lower esophageal valve. The squamocolumnar junction demonstrated LA grade B erosive esophagitis. The stomach was desufflated. The patient tolerated the procedure well. FINDINGS: Squamocolumnar junction 40 cm from the incisors. Diaphragmatic hiatus at 42 cm. Hiatal hernia, 2 cm Hill grade 3 lower esophageal valve. LA grade B erosive esophagitis with biopsies obtained Biopsies obtained to edema Chronic gastritis with bile reflux RECOMMENDATIONS: Upper endoscopy as needed. Plan - Discharge Summary Discharge Rx Participant: No New Discharge Prescriptions: Continue Aspirin 81 mg PO QAM Triamterene/Hydrochlorothiazid [Triamterene-Hctz 37.5-25 mg Cp] 1 tab PO QAM ALPRAZolam [Xanax] 0.25 mg PO DAILY PRN PRN Reason: Anxiety Naproxen [Naprosyn] 500 mg PO HS Ubidecarenone [Co Q-10] 100 mg PO QAM Rosuvastatin [Crestor] 10 mg PO HS Metoprolol Tartrate 25 mg PO HS Glucosamine/MSM/Chrond/D3/Bosw [Xjbpvdnxmjd-Plqxrx-QXA-D3 Cplt] 2 each PO DAILY Cyanocobalamin (Vitamin B-12) [Vitamin B-12] 3,000 mcg PO DAILY Potassium Gluconate [Potassium Gluconate ER] 99 mg PO QAM Acetaminophen Tab [Tylenol] 1,000 mg PO Q6HR PRN #30 tablet PRN Reason: Pain Omeprazole 40 mg PO QAM Magnesium 500 mg PO DAILY Discharge Medication List Aspirin 81 mg PO QAM 01/19/14 [History] Triamterene/Hydrochlorothiazid [Triamterene-Hctz 37.5-25 mg Cp] 1 tab PO QAM 03/22/14 [History] ALPRAZolam [Xanax] 0.25 mg PO DAILY PRN 02/03/16 [History] Naproxen [Naprosyn] 500 mg PO HS 07/09/17 [History] Ubidecarenone [Co Q-10] 100 mg PO QAM 07/09/17 [History] Rosuvastatin [Crestor] 10 mg PO HS 08/29/18 [History] Glucosamine/MSM/Chrond/D3/Bosw [Vyzhxpjrnui-Nxedep-FFP-D3 Cplt] 2 each PO DAILY 02/09/19 [History] Metoprolol Tartrate 25 mg PO HS 02/09/19 [History] Cyanocobalamin (Vitamin B-12) [Vitamin B-12] 3,000 mcg PO DAILY 02/21/22 [History] Magnesium 500 mg PO DAILY 02/21/22 [History] Omeprazole 40 mg PO QAM 02/21/22 [History] Potassium Gluconate [Potassium Gluconate ER] 99 mg PO QAM 02/21/22 [History] Acetaminophen Tab [Tylenol] 1,000 mg PO Q6HR PRN #30 tablet 02/27/22 [Rx] Follow up Appointment(s)/Referral(s): Holly Tavarez MD [Primary Care Provider] - 01/15/23 Patient Instructions/Handouts: GERD (Gastroesophageal Reflux Disease) (DC) Discharge Disposition: HOME SELF-CARE
[2022-12-12 08:04] VITALS: RESP 16
[2022-12-12 08:47] VITALS: BP 135/83; PULSE 61
== END 2022-12-12 09:13 | disposition home or self-care (01) ==
LOC: ORWHC2ENDO 06:47
PROVIDERS: ATTEND Surgery Plastic and Reconstructive Surgery
DX: K29.50 Unspecified chronic gastritis without bleeding (principal); K44.9 Diaphragmatic hernia without obstruction or gangrene; I25.10 Atherosclerotic heart disease of native coronary artery without angina pectoris; Z86.73 Personal history of transient ischemic attack (TIA), and cerebral infarction without residual deficits; K21.9 Gastro-esophageal reflux disease without esophagitis; E78.5 Hyperlipidemia, unspecified; I10 Essential (primary) hypertension; K22.89 Other specified disease of esophagus; F41.9 Anxiety disorder, unspecified; M19.90 Unspecified osteoarthritis, unspecified site; Z87.19 Personal history of other diseases of the digestive system; Z87.891 Personal history of nicotine dependence; Z79.82 Long term (current) use of aspirin; Z79.899 Other long term (current) drug therapy; Z88.2 Allergy status to sulfonamides; Z88.5 Allergy status to narcotic agent
CPT/HCPCS: 88305; 88342; 43239; J2704; J2001

== ENCOUNTER → 2023-02-11 | Outpatient (CLI) | payer OTHER ==
--- NOTE | 2023-02-12 08:16 | US ---
EXAMINATION TYPE: US bladder DATE OF EXAM: 02/11/2023 COMPARISON: NONE CLINICAL INDICATION: Female, 62 years old with history of R35.0 FREQ OF MICTURITION; TECHNIQUE: Multiple sonographic images of the bladder are obtained. FINDINGS: Initial images of the bladder show no gross abnormality. EXAM MEASUREMENTS: Post Void Residual Volume: 12.3 mL Color Doppler performed to assess ureteral jets. Bilateral Jets seen: yes Normal Post Void Residual (less than 50ml): Yes IMPRESSION: Small amount of post void residual bladder volume of 12 mL falls within acceptable limits. No sonogra phic evidence for urinary retention.
== END | disposition home or self-care (01) ==
LOC: RADUSWWP 15:59
PROVIDERS: ATTEND Family Medicine
DX: N32.89 Other specified disorders of bladder (principal); R35.0 Frequency of micturition
CPT/HCPCS: 76857

== ENCOUNTER → 2023-02-14 | Outpatient (CLI) | payer OTHER ==
--- NOTE | 2023-02-15 06:35 | US ---
EXAMINATION TYPE: US thyroid st tissue head/neck DATE OF EXAM: 02/14/2023 COMPARISON: NONE CLINICAL INDICATION: Female, 62 years old with history of R22.1 SWELLING, MASS AND LUMP IN NECK; swel ling bilateral neck TECHNIQUE: Ultrasound neck FINDINGS: lymph node right neck = 0.7cm Ultrasound of the bilateral neck shows portions of normal-appearing thyroid along with subcentimeter benign-appearing right neck lymph node. No concerning mass or fluid collection is present. IMPRESSION: As above.
--- NOTE | 2023-02-15 06:35 | US ---
EXAMINATION TYPE: US mass soft tissue chest/back DATE OF EXAM: 02/14/2023 COMPARISON: NONE CLINICAL INDICATION: Female, 62 years old with history of R22.2 SWELLING, MASS AND LUMP, TRUNK; Palpa ble right supraclavicular area, that has a clear drainage since she was a kid. Within last 6 months, getting more frequent drainage. With a pulling sensation TECHNIQUE: FINDINGS: Scanned within patient's area of concern, right supraclavicular area, unable to identify a ny discrete abnormality with ultrasound at this time No concerning solid or cystic mass or abnormal fluid collection is seen at area of clinical or palpab le concern right supraclavicular region. Dermal layer appears grossly intact on images saved. IMPRESSION: As above.
== END | disposition home or self-care (01) ==
LOC: RADUSWWP 15:25
PROVIDERS: ATTEND Family Medicine
DX: R22.1 Localized swelling, mass and lump, neck (principal); R22.2 Localized swelling, mass and lump, trunk
CPT/HCPCS: 76536

== ENCOUNTER → 2023-06-12 | Outpatient (CLI) | payer SELFPAY ==
--- NOTE | 2023-06-13 08:38 | MM ---
Reason for Exam: Screening (asymptomatic). Last mammogram was performed 1 year(s) and 2 month(s) ago. Patient History: Menarche at age 11. First Full-Term at age 29. Late child-bearing (after 30). Left ovary removed at age 36. Right ovary removed at age 36. Hysterectomy at age 36. Postmenopausal. Patient has history of breast feeding. Estrogen, starting at age 36 for 10 years. Hormonal Contraceptives, starting at age 18 for 5 years. 1999, Bilateral Reduction. Excisional Biopsy on the Left side. Excisional Biopsy on the Left side. 09/21/2013, Bilateral U/S LT Cancelled Core. Mother had breast cancer, age 70. Risk Values: Kelsey 5 year model risk: 5.0%. NCI Lifetime model risk: 17.8%. Prior Study Comparison: 11/11/2019 Bilateral Screening Mammogram, [facility]. 02/23/2021 Bilateral Screening Mammogram, [facility]. 04/17/2022 Bilateral MG screening mammo w CAD, [facility]. Tissue Density: The breast tissue is heterogeneously dense. This may lower the sensitivity of mammography. Findings: Analyzed By CAD. There is no suspicious group of microcalcifications or new suspicious mass in either breast. Overall Assessment: Benign, BI-RAD 2 Management: Screening Mammogram of both breasts in 1 year. . Patient should continue monthly self-breast exams. A clinical breast exam by your physician is recommended on an annual basis. This exam should not preclude additional follow-up of suspicious palpable abnormalities. Note on Kelsey scores and lifetime risk: 1. A Kelsey score greater than 3% is considered moderate risk. If this is the case, consider specialist referral to assess eligibility for a risk reducing agent. 2. If overall lifetime risk for the development of breast cancer is 20% or higher, the patient may qualify for future screening with alternating mammogram and breast MRI. Electronically signed and approved by: Richard Paul M.D. Radiologis
== END | disposition home or self-care (01) ==
LOC: RADMAMWWP 07:56
PROVIDERS: ATTEND Obstetrics & Gynecology
DX: Z12.31 Encounter for screening mammogram for malignant neoplasm of breast (principal); Z78.0 Asymptomatic menopausal state; Z80.3 Family history of malignant neoplasm of breast
CPT/HCPCS: 77063; 77067

== ENCOUNTER → 2024-06-25 | Outpatient (CLI) | payer MEDICARE ==
--- NOTE | 2024-06-26 08:49 | MM ---
Reason for Exam: Screening (asymptomatic). Last mammogram was performed 1 year(s) and 1 month(s) ago. Patient History: Menarche at age 11. First Full-Term at age 29. Late child-bearing (after 28). Left ovary removed at age 36. Right ovary removed at age 36. Hysterectomy at age 36. Postmenopausal. Patient has history of breast feeding. Estrogen, starting at age 36 for 10 years. Hormonal Contraceptives, starting at age 18 for 5 years. 1999, Bilateral Reduction. Excisional Biopsy on the Left side. Excisional Biopsy on the Left side. 09/21/2013, Bilateral U/S LT Cancelled Core. Mother had breast cancer, age 70. Risk Values: Kelsey 5 year model risk: 5.1%. NCI Lifetime model risk: 17.2%. Prior Study Comparison: 09/11/2016 Bilateral Screening Mammogram, [facility]. 09/11/2017 Bilateral Diagnostic Mammogram, [facility]. 10/13/2018 Bilateral Screening Mammogram, [facility]. 11/11/2019 Bilateral Screening Mammogram, [facility]. 02/23/2021 Bilateral Screening Mammogram, [facility]. 04/17/2022 Bilateral MG screening mammo w CAD, [facility]. 06/12/2023 Bilateral MG 3D screening mammo w/cad, [facility]. Tissue Density: There are scattered areas of fibroglandular density. Findings: Analyzed By CAD. Right breast: There is no suspicious group of microcalcifications or new suspicious mass. Left breast: There is no suspicious group of microcalcifications or new suspicious mass. Overall Assessment: Negative, BI-RAD 1 Management: Screening Mammogram of both breasts in [address] [facility] will attempt to contact patient to return for supplemental views and ultrasound if indicated. Patient should continue monthly self-breast exams. A clinical breast exam by your physician is recommended on an annual basis. This exam should not preclude additional follow-up of suspicious palpable abnormalities. Note on Kelsey scores and lifetime risk: 1. A Kelsey score greater than 3% is considered moderate risk. If this is the case, consider specialist referral to assess eligibility for a risk reducing agent. 2. If overall lifetime risk for the development of breast cancer is 20% or higher, the patient may qualify for future screening with alternating mammogram and breast MRI. [facility], , 06/26/2024 8:46 AM. Electronically signed and approved by: Tonny Ramos DO
== END | disposition home or self-care (01) ==
LOC: RADMAMWWP 10:14
PROVIDERS: ATTEND Family Medicine
DX: Z12.31 Encounter for screening mammogram for malignant neoplasm of breast
CPT/HCPCS: 77063; 77067

== ENCOUNTER → 2025-03-25 | Outpatient (CLI) | payer MEDICARE ==
[2025-03-25 19:57] LABS: Creatine Kinase 327 U/L (26-186)
[2025-03-25 19:58] LABS: Rheumatoid Factor, Qnt <15 IU/mL (0-15); Uric Acid 6.2 mg/dL (2.9-7.7)
[2025-03-25 23:39] LABS: Cyclic Citrull Pep IgG Unit <1.5 U/mL (<=3.9)
[2025-03-27 11:18] LABS: HLA B27 NEGATIVE
== END | disposition home or self-care (01) ==
LOC: LABWHC1 15:39
PROVIDERS: ATTEND Internal Medicine Rheumatology
DX: E55.9 Vitamin D deficiency, unspecified (principal); M06.4 Inflammatory polyarthropathy
CPT/HCPCS: 36415; 82164; 82306; 82550; 84550; 85652; 86038; 86140; 86200; 86431; 86812

== ENCOUNTER → 2025-03-25 | Outpatient (CLI) | payer MEDICARE ==
--- NOTE | 2025-03-25 16:46 | BD ---
EXAMINATION TYPE: Axial Bone Density DATE OF EXAM: 03/25/2025 CLINICAL HISTORY: 64 years old Female. ICD-10 CODE: Z13.820 ENCOUNTER FOR SCREENING FOR OSTEOPOROSIS , Additional History: Height: 65 Weight: 197 FRAX RISK QUESTIONS: Alcohol (3 or more units per day): no Family History (Parent hip fracture): no Glucocorticoids (More than 3mos): no (Ex: prednisone, prednisolone, methylprednisolone, dexamethasone, and hydrocortisone). History of Fracture in Adulthood: no Secondary Osteoporosis: 1. Type 1 Diabetes: no 2. Hyperthyroidism: no 3. Menopause before 45: yes 4. Malnutrition: no 5. Chronic liver disease: no Rheumatoid Arthritis: no Current Tobacco Use: no RISK FACTORS HISTORY OF: Surgery to Spine/Hip(right/left)/Wrist (right/left): no EXAM MEASUREMENTS: Bone mineral densitometry was performed using the [employer] System. Bone mineral density as measured about the Lumbar spine is: ----- L1-L4(G/cm2): 1.204 T Score Values are as follows: ----- L1: -1.3 ----- L2: -1.2 ----- L3: 1.8 ----- L4: 1.1 ----- L1-L4: 0.2 Z Score Values are as follows: ----- L1: -0.5 ----- L2: -0.4 ----- L3: 2.6 ----- L4: 1.9 ----- L1-L4: 1.0 Bone mineral density has: increased 4.7 % since study of: 04.17.2022 Bone mineral density about the R hip (g/cm2): 0.844 Bone mineral density about the L hip (g/cm2): 0.841 T Score values are as follows: -----R Neck: -1.6 -----L Neck: -1.8 -----R Total: 1.3 -----L Total: -1.3 Z Score values are as follows: -----R Neck: -0.6 -----L Neck: -0.8 -----R Total: -0.6 -----L Total: -0.6 Bone mineral density has: increased 0.4 % since study of: 7.26.2021 FRAX%s: The graph provided illustrates a 9.9% chance for a major osteoporotic fx and a 1.4% chance fo r the hips probability for fx in 10 years time. IMPRESSION: Osteopenia (T Score between -2.5 and -1). There is slightly increased risk of fracture and the patient may be considered for treatment. Re-Screen 2-5 years. NOTE: T-SCORE=SD OF THE YOUNG ADULT MEAN. [facility], , 03/25/2025 4:44 PM
== END | disposition home or self-care (01) ==
LOC: RADBDWWP 15:01
PROVIDERS: ATTEND Internal Medicine Rheumatology
DX: Z13.820 Encounter for screening for osteoporosis (principal); M85.89 Other specified disorders of bone density and structure, multiple sites; Z78.0 Asymptomatic menopausal state
CPT/HCPCS: 77080